=== PATIENT | female | born 1980 | race American Indian/Alaskan Native ===

== ENCOUNTER → 2023-11-29 12:03 | Outpatient (CLI) | payer OTHER, SELFPAY ==
[2023-11-30 15:18] LABS: Candida species Negative (Negative); Gardnerella vaginalis Negative (Negative); Trichomoas vaginalis Negative (Negative)
== END ==
PROVIDERS: Family Provider Family Medicine; PCP Physician Assistant; Visit Provider Physician Assistant Medical
DX: N89.8 Other specified noninflammatory disorders of vagina (principal)
CPT/HCPCS: 87480; 87510; 87660

== ENCOUNTER → 2023-12-14 11:39 | Outpatient (CLI) | payer OTHER, SELFPAY ==
--- NOTE | 2023-12-14 11:41 | DI.MG.S_ITS ---
BILATERAL DIGITAL SCREENING MAMMOGRAM 3D/2D WITH CAD: 12/14/2023 CLINICAL: Baseline exam. Routine screening. No prior exams were available for comparison. Both breasts are heterogeneously dense, which may obscure small masses (category c / 51-75% glandular tissue). Current study was also evaluated with a Computer Aided Detection (CAD) system. No significant masses, calcifications, or other findings are seen in either breast. IMPRESSION: NEGATIVE There is no mammographic evidence of malignancy. A 1 year screening mammogram is recommended. Based on the Tyrer Cuzick model (a risk assessment model) the patient's lifetime risk is 9.7% and her 10 year risk is 1.5%. According to the ACR, ACS, and NCCN guidelines, an annual breast MRI exam along with mammogram is recommended if the patient's lifetime risk is 20% or greater. This exam was interpreted at Station ID: [id number]. NOTE: For mammograms, a report in lay terms will be sent to the patient. Approximately 15% of breast malignancies will not be visualized mammographically. In the management of a palpable breast mass, a negative mammogram must not discourage biopsy of a clinically suspicious lesion. Electronically Signed By: Mary grady/martin:12/14/2023 16:58:01 letter sent: Normal Exam ACR BI-RADS Category 1: Negative [id number]
--- NOTE | 2023-12-14 11:41 | DI.US.S_ITS ---
PROCEDURE: US PELVIC COMPLETE INDICATIONS: LEFT PELVIC DISCOMFORT. HISTORY OF ECTOPIC 6 YEARS AGO. TECHNIQUE: Real-time scanning was performed of the pelvic organs, with image documentation. Additional endovaginal scanning was necessary due to incomplete visualization of the adnexal and endometrial structures by transabdominal scanning. COMPARISON: [facility], US, PELVIC COMPLETE, 04/07/2016, 15:54. FINDINGS: Uterus: Uterus is anteverted and normal in size at 8.2 x 4.3 x 5.8 cm. The myometrium is heterogeneous. The endometrium measures 4.1 mm combined thickness. There is a right anterior intramural fibroid which measures 3.3 x 2.6 x 2.8 cm and a left anterior intramural fibroid which measures 2.3 x 1.7 x 1.8 cm. Ovaries: The right ovary measures 1.8 x 2.5 x 2.6 cm, with a calculated ovarian volume of 6.0 cc. The left ovary measures 2.1 x 1.6 x 2.2 cm, with a calculated ovarian volume of 3.8 cc. The ovaries have a normal sonographic appearance. Less than 12 follicles can be seen in each ovary. No adnexal masses are seen. Other: No pathologic free abdominal or pelvic fluid. IMPRESSION: 1. Fibroid uterus. 2. Otherwise unremarkable pelvic ultrasound. We strive to produce accurate, complete, and clear reports of imaging services. To assist us in improving patient care, this report was composed using standard report templates and voice recognition software. Therefore, it may contain abnormal punctuation, insertions and/or omissions. Occasional wrong-word or sound-alike substitutions may occur. Though we review the report and make efforts to correct it, we do recommend that the report be read carefully in proper context to recognize any text inaccuracies. Dictated by: Kristi Parkinson M.D. on 12/14/2023 at 14:39 Approved by: Kristi Parkinson M.D. on 12/14/2023 at 14:49
[2023-12-14 17:56] LABS: Follicle Stimulating Hormone 4.18 mIU/mL
== END ==
PROVIDERS: Family Provider Family Medicine; PCP Physician Assistant; Referring Provider Physician Assistant Medical; Visit Provider Physician Assistant Medical
DX: Z12.31 Encounter for screening mammogram for malignant neoplasm of breast (principal); R92.333 Mammographic heterogeneous density, bilateral breasts; D25.1 Intramural leiomyoma of uterus; R10.2 Pelvic and perineal pain; R23.2 Flushing
CPT/HCPCS: 36415; 76830; 76856; 77063; 77067; 83001

== ENCOUNTER 2024-02-24 10:30 | Day surgery (SDC) | payer OTHER, SELFPAY ==
[2024-02-22 10:44] VITALS: BMI 30.9
[2024-02-24] VITALS (10 sets, daily range): BP systolic 112–134; BP diastolic 63–77; PULSE 65–94; RESP 12–18; TEMP 36.3–37.1; O2SAT 96–100; BMI 30.9
--- NOTE | 2024-02-24 | PATH_ITS ---
[facility] Accession Number: [id number] No. of containers..01 Tissue . 01 Material submitted: . uterus - UTERUS,BILATERAL FALLOPIAN TUBES . 01 Diagnosis: UTERUS AND BILATERAL FALLOPIAN TUBES, HYSTERECTOMY AND BILATERAL SALPINGECTOMY: Dyssynchronous endometrium; no endometrioid intraepithelial neoplasia and no malignancy. Superficial adenomyosis. Leiomyomata. Complete cross section of bilateral fimbriated fallopian tube lumen identified without any significant pathologic alterations. [facility] 02/29/2024 1323 Local . 01 Electronically signed: . Ynes Guthrie MD, Pathologist NPI- [id number] . 01 Gross description: . Received in formalin, labeled with two patient identifiers and uterus and bilateral fallopian tubes, and consists of a 13.5 x 7.5 x 4.0 cm, 81 g, aggregate of fragmented uterus with two detached, free-floating, fimbriated fallopian tubes. The uterus is severely fragmented and partially surfaced by a smooth, white-hernandez, serosal surface. The myometrium is red-hernandez, trabeculated, and measures up to 1.1 cm in thickness with multiple white, whorled, well-circumscribed, intramural nodules ranging from 0.4 x 0.4 x 0.2 cm up to 2.0 x 2.0 x 1.8 cm. These nodules replace approximately 10% of the myometrium. Small fragments of endometrial lining are identified. They are surfaced by a red, finely granular mucosa and average 0.2 cm in thickness. No cervix is identified. The attached fimbriated fallopian tube measures 1.2 cm in length by 0.4 cm in diameter and has a 0.3 cm stellate lumen. The specimen is arbitrarily inked black. The second detached fimbriated fallopian tube measures 3.5 cm in length by 0.4 cm in diameter and has a 0.3 cm stellate lumen. The specimen is arbitrarily inked blue. Forensic Sergeant sections are submitted in: Cassettes A1-A2: Endomyometrium. Cassette A3: Smaller myometrial nodules. Cassette A4: Largest myometrial nodules (four pieces in cassette). Cassette A5: Black-inked fimbriated fallopian tube fimbriae entirely submitted. Cassette A6: Blue-inked fimbriated fallopian tube fimbriated end entirely submitted. ([id number]) /[facility] 02/26/2024 [facility] Local . 01 Pathologist provided ICD-10: N80.00, D25.9 . 01 CPT . 180258 Specimen Comment: A courtesy copy of this report has been sent to [phone] Performed at: [address] [id number] MD Bakari Cummins MD Phone: [phone]
[2024-02-24] MEDS: LACTATED RINGERS 1,000 ML 42 ML IV ×2 (11:11→15:59)
[2024-02-24] MEDS: ACETAMINOPHEN 325 MG TABLET 975 MG PO (11:11)
--- NOTE | 2024-02-24 11:52 | PM.PREOP ---
Pre-operative Note Interval Note History & Physical reviewed/Exam performed by Physician: Yes Changes to H&P: No H&P completed within 30 days and has changed as indicated here:: 02/11/24
--- NOTE | 2024-02-24 12:00 | SUR.OPER ---
Lithotomy on padded OR bed. Bloomer Pad Positioner under torso. Head on pillow, arms padded and tucked at sides. Legs secured in padded yellow fins stirrups.
[2024-02-24] MEDS: CEFAZOLIN 2 GM/100 ML PREMIX 100 ML IV (12:39)
[2024-02-24] MEDS: BUPIVACAINE 0.5% W/ EPI (PF) 10 ML VIAL 30 ML INJ (13:12)
[2024-02-24] MEDS: LACTATED RINGERS 1,000 ML 21 ML IV (13:40)
[2024-02-24] MEDS: SCOPOLAMINE 1 PATCH TOP (13:53)
--- NOTE | 2024-02-24 13:57 | P.OP_ITS ---
Operative Date/Time/Diagnoses Date of procedure: 02/24/24 Time of procedure: 13:57 Pre-op diagnosis: Menorrhagia Dysmenorrhea Fibroid uterus Post-op diagnosis: same Procedure & Clinicians Procedure: Procedures Operation Date: 02/24/24 12:00 Actual Procedure Side Surgeon p Laparoscopic Supracervical Hysterectomy with Bilateral Salpingectomy Candis Magallon MD Indications: 43-year-old with an enlarged fibroid uterus, menorrhagia, and dysmenorrhea. Surgeon: Candis Magallon Roads Supervisor: Sara Espinoza Anesthesia Type: General and Local Operative Notes Findings: Ten week size fibroid uterus Normal ovaries bilaterally Normal liver Normal appendix Tubes status post Filshie clip application Closure Type: primary Specimen(s): left tube, right tube and uterus Applied: catheter (Removed at the end of the case) Estimated blood loss (mL): 10 Blood products transfused: none Procedure in detail: The patient was taken to the operating room where she was placed in the dorsal supine position. After adequate general endotracheal anesthesia was achieved, she was placed in the dorsal lithotomy position, and prepped and draped usual sterile fashion. A time-out was performed. A bivalve speculum was placed into the vagina and the anterior lip of the cervix was grasped with a single-tooth tenaculum. The cervical os was sequentially dilated until the Zumi uterine manipulator could pass easily into the endometrial cavity. The single-tooth tenaculum was removed from the anterior lip of the cervix. The bivalve speculum was removed from the vagina. Attention was then turned to the abdomen where 6 cc of 0.5% Marcaine with epinephrine were injected in the umbilical fold. A 5 mm incision was made. The Veress needle was placed into the peritoneal cavity, and its placement confirmed by aspiration and drop test. The abdominal cavity was insufflated with 3.8 L of CO2. The Veress needle was removed, and a long 5 mm trocar was placed without difficulty. Initial inspection of the pelvis and abdomen revealed the findings noted above. Two other incisions were made 4 cm lateral to the midline after 6 cc of 0.5% Marcaine with epinephrine were injected. The abdomen was transilluminated to avoid blood vessels. 5 mm incisions were made. Two 5 mm trocars were placed under direct visualization. The right tube was grasped with an atraumatic grasper. Using the power seal, the mesosalpinx was cauterized and cut all the way to the cornua of the uterus. The tube was removed through the right lateral trocar. The utero-ovarian vessels were cauterized and cut. The round ligament was cauterized and cut. The broad ligament was cauterized and cut. The bladder flap was created using the power seal using cautery and cut senior care across. The uterine arteries on the right side were extensively cauterized with the power seal. All of this was repeated on the patient's left side. The Brittany loop was placed 2 cm above the uterosacral ligaments. The Zumi uterine manipulator was removed from the uterus and a moistened sponge stick was placed. The uterus was amputated from the cervix 2 cm above the uterosacral ligaments. The spatula cautery was used to cauterize the endocervical canal. There was a small amount of bleeding from the posterior edge of the cervix and this was cauterized with the spatula cautery. The pelvis was copiously irrigated with warm normal saline. No bleeding was noted. 6 cc with 0.5% Marcaine with epinephrine were injected above the pubic symphysis. A 12 mm incision was made. The 12 mm trocar was placed under direct visualization. The large endobag was placed through the suprapubic trocar and opened. The uterus was placed into the bag. The bag was closed and the edges were brought up through the skin, after the trocar was removed. The fascial incision was extended slightly. The uterus was grasped with a Claudine. The Drew was placed into the bag. The uterus was morcellated in approximately 20 pieces. The bag and Drew were removed from the abdomen. The suprapubic incision was closed on the fascia with 0 Vicryl. The abdomen was re-insufflated with carbon dioxide gas. The pelvis was copiously irrigated and there was no bleeding noted. 20 cc of 0.2% ropivacaine were placed over the pedicles. The instruments were removed from the abdomen. The CO2 was allowed to escape. The suprapubic incision was closed with 2 simple interrupted sutures with 3-0 Vicryl to reapproximate the subcutaneous layer. All of the skin incisions were closed with 4-0 Monocryl in a subcuticular fashion. Steri-Strips and Allevyn dressings were placed. The moistened sponge stick was removed from the vagina. Sponge, lap, and instrument counts were correct x2. The patient tolerated the procedure well, and was taken to PACU in stable condition. Complications: none Post-operative Condition: stable Disposition: PACU Plan for aftercare: Home after recovery
[2024-02-24] MEDS: hydrOXYzine 50 MG/ML INJ IM (14:45)
[2024-02-24] MEDS: ONDANSETRON 4 MG/2 ML INJ IV (15:59)
[2024-02-24] MEDS: OXYCODONE IR 5 MG TABLET PO (15:59)
== END 2024-02-24 17:05 | disposition home or self-care (01) ==
LOC: OR 10:31 → AC 10:33
PROVIDERS: Family Provider Family Medicine; PCP Physician Assistant; Referring Provider Obstetrics & Gynecology; Visit Provider Obstetrics & Gynecology
PROC: 0UT94ZL Resection of Uterus, Supracervical, Percutaneous Endoscopic Approach (ICD-10-PCS; CPT 58542; principal; 2024-02-24 12:00)
DX: D25.1 Intramural leiomyoma of uterus (principal); N92.6 Irregular menstruation, unspecified; N94.6 Dysmenorrhea, unspecified; N80.03 Adenomyosis of the uterus; D25.9 Leiomyoma of uterus, unspecified
CPT/HCPCS: 58542; J0330; J0690; J1100; J1885; J2405; J2704; J3010; J3410; J3490

== ENCOUNTER → 2025-01-04 09:17 | Outpatient (CLI) | payer OTHER, SELFPAY ==
--- NOTE | 2025-01-04 09:18 | DI.MG.S_ITS ---
MM screening mammo BI: 01/04/2025. BI-RADS: 1 CLINICAL: 44-year old female for bilateral screening mammogram. Tyrer-Cuzick lifetime risk of 6.8%. No personal or first-degree family history of breast cancer. PRIOR EXAMS 12/14/2023. MAMMOGRAPHY TECHNIQUE: 2D and 3D (tomosynthesis) digital mammographic views obtained, with additional images as needed for full coverage. Current study was also evaluated with a Computer Aided Detection (CAD) system. DENSITY C. The breasts are heterogeneously dense, which may obscure small masses. MAMMOGRAPHY FINDINGS Bilateral: No suspicious mass, asymmetry, microcalcification, or other abnormality seen. No significant change from comparison. IMPRESSION: * No evidence of malignancy. RECOMMENDATIONS Bilateral * Annual screening mammography. OVERALL ASSESSMENT CATEGORY BI-RADS-1: Negative. The [employer] recommends annual screening mammography beginning at age 40 for women with average risk of breast cancer. ELECTRONICALLY SIGNED: Mary Gibbons M.D. on 01/04/2025 at 05:06:35 PM PT Interpreting Station ID: [id number]
== END ==
PROVIDERS: Family Provider Family Medicine; PCP Nurse Practitioner Family; Referring Provider Nurse Practitioner Family; Visit Provider Nurse Practitioner Family
DX: Z12.31 Encounter for screening mammogram for malignant neoplasm of breast (principal); R92.333 Mammographic heterogeneous density, bilateral breasts
CPT/HCPCS: 77063; 77067